=== PATIENT | female | born 1950 | race Caucasian/White ===

== ENCOUNTER 2017-04-04 18:05 | Emergency (ER) | payer MEDICARE ==
[2017-04-04] MEDS ORDERED: NITROGLYCERIN OINT 1 INCH/GM PACKET TOPICAL STA (18:26)
[2017-04-04] MEDS ORDERED: ASPIRIN 81 MG CHEW PO STA (18:26)
[2017-04-04] MEDS ORDERED: KETOROLAC 30 MG/ML 1 ML VIAL IVP STA (18:26)
[2017-04-04] MEDS ORDERED: LABETALOL 5 MG/ML VIAL MDV IVP STA (18:31)
--- NOTE | 2017-04-04 18:31 | ED ---
Chest Pain HPI - General Chief Complaint: Chest Pain Stated Complaint: chest pain Time Seen by Provider: 04/04/17 18:19 Source: patient Mode of arrival: wheelchair Limitations: no limitations - History of Present Illness Initial Comments: This 66-year-old white female presents with a complaint of some midsternal chest pain which seems to radiate into her jaw, neck, and right shoulder/arm. It started approximately 30 minutes prior to arrival. It is not associated with any shortness of breath, diaphoresis, or palpitations. She denies any known previous cardiac history. She has a history of a remote stress test but has never had a heart catheterization. She denies any change in her fibromyalgia associated leg pain. She denies any leg swelling, history of DVT or PE. She was at rest when this occurred. She denies any other complaints or modifying factors. She states that she had this one time previously and it was due to costochondritis. - Related Data Home Medications Medication Instructions Recorded Confirmed DULoxetine HCL [Cymbalta] 60 mg PO DAILY 06/15/14 04/04/17 Areds2 (Eye Vitamin) 1 tab PO BID 12/23/14 04/04/17 Cholecalciferol [Vitamin D3] 2,000 unit PO HS 12/23/14 04/04/17 Glucosam/Bryant-Msm1/C/Enrique/Bosw 1 tab PO BID 12/23/14 04/04/17 [Glucosamine-Chondroitin Tablet] Cinnamon Bark [Cinnamon] 1,000 mg PO BID 04/04/17 04/04/17 Fluticasone Nasal Grandy [Flonase 1 spray EA NOSTRIL BID 04/04/17 04/04/17 Nasal Grandy] L.acidoph,Paracasei, B.lactis 1 cap PO DAILY 04/04/17 04/04/17 [Probiotic] Magnesium 400 mg PO BID 04/04/17 04/04/17 Mupirocin Calcium 2% Cream 1 applic TOPICAL TID 04/04/17 04/04/17 [Bactroban 2% Cream] Saline Eye Drops 1 drop BOTH EYES DAILY 04/04/17 04/04/17 Turmeric Root Extract [Turmeric] 500 mg PO BID 04/04/17 04/04/17 Ubidecarenone [Co Q-10] 200 mg PO DAILY 04/04/17 04/04/17 Vitamin B Complex 1 cap PO DAILY 04/04/17 04/04/17 Zolpidem Tartrate [Ambien] 5 mg PO Q48H 04/04/17 04/04/17 amLODIPine BESYLATE [Norvasc] 5 mg PO DAILY 04/04/17 04/04/17 Allergies Allergy/AdvReac Type Severity Reaction Status Date / Time codeine Allergy Nausea & Verified 04/04/17 19:27 Vomiting,altered thoughts-paranoia erythromycin base AdvReac Abdominal Verified 04/04/17 19:27 [Erythromycin Base] Pain hydromorphone HCl AdvReac Nausea & Verified 04/04/17 19:27 [From Dilaudid] Vomiting Penicillins AdvReac Rash/Hives Verified 04/04/17 19:27 Review of Systems ROS Statement: Those systems with pertinent positive or pertinent negative responses have been documented in the HPI. ROS Other: All systems not noted in ROS Statement are negative. Past Medical History Past Medical History: Eye Disorder, Fibromyalgia, Hyperlipidemia, Hypertension, Musculoskeletal Disorder, Osteoarthritis (OA), Skin Disorder Additional Past Medical History / Comment(s): Recent bout of bronchits and sinus infection-resolved now. Currently has hemorrhoids. PLANTAR FASCITIS BINH. FEET. MACULAR DEG. & STARTING CATARACTS History of Any Multi-Drug Resistant Organisms: None Reported Past Surgical History: Adenoidectomy, Appendectomy, Hysterectomy, Orthopedic Surgery, Tonsillectomy Additional Past Surgical History / Comment(s): RT BARTHOLIN CYST 1972,. TENDON REPAIR LT THUMB,. HEMORRHOIDECTOMY X 2,. SALPINGO OOPHORECTOMY,. COLONOSCOPY WITH REMOVAL 2 POLYPS Past Anesthesia/Blood Transfusion Reactions: Previous Problems w/ Anesthesia Additional Past Anesthesia/Blood Transfusion Reaction / Comment(s): HARD TO WAKE UP Smoking Status: Former smoker - Past Family History Father Family Medical History: Cancer General Exam - General Exam Comments Initial Comments: GENERAL: The patient is well nourished and well hydrated. VITAL SIGNS: Heart rate, blood pressure, respiratory rate reviewed as recorded in nurse's notes. EYES: Pupils are round and reactive. Extraocular movements are intact. No conjunctival / lid redness or swelling. ENT: No external evidence of injury, swelling, or ecchymosis. Airway is patent. Throat is clear. NECK: Nontender. No swelling or evidence of injury. No subcutaneous emphysema. Trachea is midline. No thyroid mass. HEART: Regular rate and rhythm. Good peripheral pulses. LUNGS/CHEST: Breath sounds clear and equal bilaterally. No rales, rhonchi, or wheezes. No ecchymosis, subcutaneous emphysema. There is mild tenderness upon palpation of the chest. ABDOMEN: Abdomen soft without tenderness. No palpable masses or organomegaly. No peritoneal signs. No abdominal wall swelling or ecchymosis. EXTREMITIES: No extremity tenderness. Normal muscle tone and function. No thoracolumbar tenderness. NEUROLOGIC: Sensation is grossly intact. Cranial nerve exam reveals face is symmetrical, tongue is midline, speech is clear. SKIN: No abrasions or ecchymosis is noted. No induration or masses noted. PSYCHIATRIC: Alert and oriented. Appropriate behavior and judgment. Limitations: no limitations Course Vital Signs 04/04/17 04/04/17 18:10 19:19 Temperature 97.1 F L Pulse Rate 111 H 76 Respiratory 20 17 Rate Blood Pressure 221/108 112/60 O2 Sat by Pulse 95 96 Oximetry Chest Pain [facility] The patient was seen and examined. All diagnostics were reviewed. The EKG was done and shows sinus tachycardia at a rate of 102. Occasional PVC is noted. There is some nonspecific T-wave abnormalities noted in V5 and V6 which likely are artifactual. The RI interval is 160, QRS duration is 72, and QTC intervals 443. She receives some aspirin, Nitropaste, and Toradol. The laboratory did not show any acute abnormalities. The chest x-ray showed some possible pulmonary fibrosis. She is feeling remarkably improved on recheck. It is felt as though she should be admitted to the hospital for the possibility of acute coronary syndrome. In addition her blood pressure was significantly elevated and she did receive some labetalol for this did come down nicely. Is felt as though she would benefit from further monitoring of her blood pressures well. She refuses to stay in the hospital. The risks benefits were discussed and ultimately detail and she signs out AGAINST MEDICAL ADVICE. 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 She will follow up with her doctor tomorrow to schedule a stress test. Return parameters are discussed. Disposition Clinical Impression: Chest pain, Hypertensive crisis, Fibromyalgia, Left against medical advice Disposition: Left Against Medical Advice Condition: Fair Instructions: Chest Pain (ED), Hypertensive Crisis (ED), Against Medical Advice (ED) Referrals: Vianney Benjamin DO [Primary Care Provider] - 1-2 days Time of Disposition: 20:44
[2017-04-04 18:45] LABS: Basophils # (A) 0.1 k/uL (0-0.2); Basophils % (A) 1 %; CH 28.4; CHCM 33.6; Eosinophils # (A) 0.4 k/uL (0-0.7); Eosinophils % (A) 4 %; HCT 43.4 % (34.0-46.0); HDW 2.52; HGB 14.8 gm/dL (11.4-16.0); Luc # (Auto) 0.23; Luc % (Auto) 2; Lymphocytes # (A) 3.3 k/uL (1.0-4.8); Lymphocytes % (A) 29 %; MCH 28.9 pg (25.0-35.0); MCHC 34.1 g/dL (31.0-37.0); MCV 84.8 fL (80.0-100.0); Mean Platelet Volume 6.9; Monocytes # (A) 0.8 k/uL (0-1.0); Monocytes % (A) 7 %; Neutrophils # (A) 6.4 k/uL (1.3-7.7); Neutrophils % (A) 57 %; RBC 5.12 m/uL (3.80-5.40); RDW 13.6 % (11.5-15.5); WBC 11.3 k/uL (3.8-10.6); WBC (Perox) 11.43
--- NOTE | 2017-04-04 18:49 | XR ---
EXAMINATION TYPE: XR chest 2V DATE OF EXAM: 04/04/2017 COMPARISON: NONE HISTORY: Chest pain TECHNIQUE: Frontal and lateral views of the chest are obtained. FINDINGS: There is coarsening of interstitial markings. Heart size is normal. There are chest leads. There is no pleural effusion. IMPRESSION: Interstitial pulmonary infiltrates probably due to fibrosis. Normal heart. No gross hear t failure.
[2017-04-04 18:55] LABS: INR 1.1 (<1.1); Partial Thromboplastin Time 24.4 sec (22.0-30.0); Prothrombin Time 10.8 sec (9.0-12.0)
[2017-04-04 19:00] LABS: ALT 33 U/L (9-52); AST 20 U/L (14-36); Alkaline Phosphatase 101 U/L (38-126); Anion Gap 13 mmol/L; Blood Urea Nitrogen 16 mg/dL (7-17); Carbon Dioxide 26 mmol/L (22-30); Chloride 106 mmol/L (98-107); Creatine Kinase 41 U/L (30-135); Glucose 126 mg/dL (74-99); Non-African American GFR(MDRD) >60 (>60 ml/min/1.73 sqM); Potassium 3.9 mmol/L (3.5-5.1); Sodium 145 mmol/L (137-145); Total Bilirubin 0.3 mg/dL (0.2-1.3); Total Protein 7.2 g/dL (6.3-8.2)
[2017-04-04 19:11] LABS: Creatine Kinase MB 0.4 ng/mL (0.0-2.4); Troponin I <0.012 ng/mL (0.000-0.034)
[2017-04-04 20:43] VITALS: BP 130/64; PULSE 87; RESP 16; TEMP 98.7
== END 2017-04-04 20:58 | disposition left against medical advice (07) ==
LOC: EC 18:05
DX: R07.9 Chest pain, unspecified (principal); I16.9 Hypertensive crisis, unspecified; M79.7 Fibromyalgia; Z53.21 Procedure and treatment not carried out due to patient leaving prior to being seen by health care provider; Z79.899 Other long term (current) drug therapy; Z79.51 Long term (current) use of inhaled steroids; Z88.5 Allergy status to narcotic agent; Z88.0 Allergy status to penicillin; Z87.891 Personal history of nicotine dependence
CPT/HCPCS: 36415; 93005; 80053; 82550; 82553; 83735; 84484; 85025; 85610; 85730; 71020; 99285; 96374; 96375; J1885

== ENCOUNTER 2017-04-09 10:33 | Day surgery (SDC) | payer BC, MEDICARE ==
[2017-04-08 08:47] VITALS: BMI 37.2
[2017-04-09 11:34] VITALS: TEMP 97
[2017-04-09] MEDS: LACTATED RINGERS 1,000 ML IV SCH ×2 (11:46→11:47)
[2017-04-09] MEDS ORDERED: MIDAZOLAM 2 MG/2 ML VIAL ONE (11:48)
[2017-04-09] MEDS ORDERED: LIDOCAINE 1% INJ 10MG/ML (20 ML MDV) ONE (11:48)
[2017-04-09] MEDS ORDERED: PROPOFOL 10 MG/ML 20 ML VIAL IV ONE (11:48)
[2017-04-09 11:55] LABS: Glucose,Whole Blood 148 mg/dL (75-99)
--- NOTE | 2017-04-09 11:57 | P.GSHP ---
History of Present Illness H&P Date: 04/09/17 Chief Complaint: Screening colonoscopy This 66-year-old female who presents today for screening colonoscopy. The patient had issues with some rectal bleeding from hemorrhoids. Patient's last colonoscopy was 14 years ago. She states she had a polyp at that time. Past Medical History Past Medical History: Eye Disorder, Fibromyalgia, Hyperlipidemia, Hypertension, Musculoskeletal Disorder, Osteoarthritis (OA), Skin Disorder Additional Past Medical History / Comment(s): FLAIR UP OF FIBROMYALGIA WAS SEEN IN ER 04/04/17. Currently has hemorrhoids. PLANTAR FASCITIS BINH. FEET. MACULAR DEG. & STARTING CATARACTS History of Any Multi-Drug Resistant Organisms: None Reported Past Surgical History: Adenoidectomy, Appendectomy, Hysterectomy, Orthopedic Surgery, Tonsillectomy Additional Past Surgical History / Comment(s): RT BARTHOLIN CYST 1972,. TENDON REPAIR LT THUMB,. HEMORRHOIDECTOMY X 2,. SALPINGO OOPHORECTOMY,. COLONOSCOPY WITH REMOVAL 2 POLYPS Past Anesthesia/Blood Transfusion Reactions: Previous Problems w/ Anesthesia Additional Past Anesthesia/Blood Transfusion Reaction / Comment(s): HARD TO WAKE UP Smoking Status: Former smoker - Past Family History Father Family Medical History: Cancer Medications and Allergies Home Medications Medication Instructions Recorded Confirmed Type DULoxetine HCL [Cymbalta] 60 mg PO DAILY 06/15/14 04/09/17 History Areds2 (Eye Vitamin) 1 tab PO BID 12/23/14 04/09/17 History Cholecalciferol [Vitamin D3] 2,000 unit PO HS 12/23/14 04/09/17 History Glucosam/Bryant-Msm1/C/Enrique/Bosw 1 tab PO BID 12/23/14 04/09/17 History [Glucosamine-Chondroitin Tablet] Cinnamon Bark [Cinnamon] 1,000 mg PO BID 04/04/17 04/09/17 History Fluticasone Nasal Redmon [Flonase 1 spray EA NOSTRIL BID 04/04/17 04/09/17 History Nasal Redmon] L.acidoph,Paracasei, B.lactis 1 cap PO DAILY 04/04/17 04/09/17 History [Probiotic] Magnesium 400 mg PO BID 04/04/17 04/09/17 History Mupirocin Calcium 2% Cream 1 applic TOPICAL TID 04/04/17 04/09/17 History [Bactroban 2% Cream] Saline Eye Drops 1 drop BOTH EYES DAILY 04/04/17 04/09/17 History Turmeric Root Extract [Turmeric] 500 mg PO BID 04/04/17 04/09/17 History Ubidecarenone [Co Q-10] 200 mg PO DAILY 04/04/17 04/09/17 History Vitamin B Complex 1 cap PO DAILY 04/04/17 04/09/17 History Zolpidem Tartrate [Ambien] 5 mg PO Q48H 04/04/17 04/09/17 History amLODIPine BESYLATE [Norvasc] 5 mg PO DAILY 04/04/17 04/09/17 History Allergies Allergy/AdvReac Type Severity Reaction Status Date / Time codeine Allergy Nausea & Verified 04/09/17 11:34 Vomiting,altered thoughts-paranoia erythromycin base AdvReac Abdominal Verified 04/09/17 11:34 [Erythromycin Base] Pain hydromorphone HCl AdvReac Nausea & Verified 04/09/17 11:34 [From Dilaudid] Vomiting Penicillins AdvReac Rash/Hives Verified 04/09/17 11:34 Surgical - Exam Vital Signs Temp Pulse Resp BP Pulse Ox 97.0 F L 100 18 171/98 95 04/09/17 11:32 04/09/17 11:32 04/09/17 11:32 04/09/17 11:32 04/09/17 11:32 - General well developed, no distress - Eyes PERRL - ENT normal pinna - Neck no masses - Respiratory normal expansion - Cardiovascular Rhythm: regular - Abdomen Abdomen: soft, non tender Results - Labs Abnormal Lab Results - Last 24 Hours (Table) 04/09/17 Range/Units 11:43 POC Glucose (mg/dL) 148 H (75-99) mg/dL Assessment and Plan Plan: History of colon polyp. We'll perform colonoscopy.
--- NOTE | 2017-04-09 12:12 | P.OP ---
Date of Procedure: 04/09/17 Preoperative Diagnosis: Screening colonoscopy Colon polyp Postoperative Diagnosis: Internal and external hemorrhoids Rectal polyp Procedure(s) Performed: Colonoscopy Implants: Anesthesia: MAC Surgeon: Kirby Tracey Pathology: other (Rectal polyp) Condition: stable Disposition: PACU Indications for Procedure: Operative Findings: Description of Procedure: The patient's placed on the endoscopy table in the lateral position. She received IV sedation. Digital rectal exam was performed which revealed internal and external hemorrhoids. The flexible colonoscope was then placed patient anus and passed throughout the entire colon. The ileocecal valve visualized. Cecum, ascending and transverse colon appeared normal. In the descending and sigmoid colon was a few scattered diverticula. Scope was then brought back the rectum another polyp was visualized. This was removed the forcep. Scope was withdrawn for patient in the internal Mr. noted.
[2017-04-09 12:18] VITALS: RESP 16
[2017-04-09 12:33] VITALS: BP 113/72; PULSE 73
== END 2017-04-09 12:49 | disposition home or self-care (01) ==
LOC: ORWHC2ENDO 10:33
PROVIDERS: ATTEND Surgery
DX: Z12.11 Encounter for screening for malignant neoplasm of colon (principal); K62.1 Rectal polyp; K64.4 Residual hemorrhoidal skin tags; K64.8 Other hemorrhoids; Z86.010 Personal history of colon polyps; E78.5 Hyperlipidemia, unspecified; I10 Essential (primary) hypertension; M79.7 Fibromyalgia; M19.90 Unspecified osteoarthritis, unspecified site; Z87.891 Personal history of nicotine dependence; Z79.51 Long term (current) use of inhaled steroids; Z79.899 Other long term (current) drug therapy; Z88.1 Allergy status to other antibiotic agents; Z88.5 Allergy status to narcotic agent; Z88.0 Allergy status to penicillin
CPT/HCPCS: 88305; 45380; J2250; J2001; J2704

== ENCOUNTER → 2017-05-08 | Outpatient (CLI) | payer MEDICARE ==
--- NOTE | 2017-05-08 14:51 | EST ---
DATE OF SERVICE: 05/08/2017 TYPE OF REPORT: CARDIOLITE DELICIA STRESS TEST INDICATION: Chest pain. BASELINE HEART RATE: 124 BASELINE BLOOD PRESSURE: 145/99 MAXIMUM HEART RATE: 140 MAXIMUM BLOOD PRESSURE: 217/86 85% MPHR: 132 100% MPHR: 153 METS: 3.6 MAXIMUM STAGE REACHED: I TOTAL EXERCISE TIME: 2:15 Baseline EKG revealed normal sinus rhythm without significant ST-T changes. Patient walked on standard Delicia protocol for 2 minutes, 20 seconds, developed fatigue, shortness of breath and therefore stress test was stopped. Patient has an extremely limited exercise capacity. EKG did not reveal any ST-segment changes, maximum heart rate was 140 beats per minute. By EKG criteria, this is a negative stress test with extremely limited exercise capacity. The nuclear scan results which are more pertinent will be reported by the radiologist. ANA
--- NOTE | 2017-05-08 15:36 | NM ---
EXAMINATION TYPE: NM stress cardiolite complete DATE OF EXAM: 05/08/2017 COMPARISON: NONE HISTORY: Chest pain TECHNIQUE: After the intravenous administration of 10.19 mCi Tc 99m Sestamibi - Rest images obtained 45 minutes post injection. The patient exercised using a DELICIA protocol and 1 minute prior to peak exercise was injected with 25.3 mCi Tc 99m Sestamibi - Stress images obtained 10 minutes post inject ion. FINDINGS: Targeted heart rate was achieved during performance of the study. Review of stress and rest SPECT nata ges demonstrates decreased radiopharmaceutical uptake along the anterolateral left ventricle towards the apex on stress as compared to rest images. Gated analysis shows normal wall motion with an estim ated left ventricular ejection fraction of 59 %. 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 A Yellow message has been communicated to Vianney Benjamin DO via the [employer] system on 05/08/2017 3:33 PM, Message ID [id number].
== END | disposition home or self-care (01) ==
LOC: RADNMMAIN 09:07
PROVIDERS: ATTEND Family Medicine
DX: R07.9 Chest pain, unspecified (principal)
CPT/HCPCS: 93017; 78452; A9500

== ENCOUNTER → 2017-05-31 | Outpatient (CLI) | payer MEDICARE ==
[2017-05-31 16:54] LABS: CH 28.5; CHCM 32.6; HCT 46.8 % (34.0-46.0); HDW 2.43; HGB 15.5 gm/dL (11.4-16.0); MCHC 33.1 g/dL (31.0-37.0); MCV 87.7 fL (80.0-100.0); Mean Platelet Volume 6.5; RBC 5.34 m/uL (3.80-5.40); RDW 13.6 % (11.5-15.5); WBC 13.1 k/uL (3.8-10.6)
[2017-05-31 17:05] LABS: Anion Gap 11 mmol/L; Blood Urea Nitrogen 16 mg/dL (7-17); Carbon Dioxide 30 mmol/L (22-30); Chloride 105 mmol/L (98-107); Non-African American GFR(MDRD) >60 (>60 ml/min/1.73 sqM); Potassium 4.4 mmol/L (3.5-5.1); Sodium 146 mmol/L (137-145)
== END | disposition home or self-care (01) ==
LOC: LABPAT 16:35
PROVIDERS: ATTEND Internal Medicine Interventional Cardiology
DX: Z01.812 Encounter for preprocedural laboratory examination (principal); R94.30 Abnormal result of cardiovascular function study, unspecified
CPT/HCPCS: 80051; 82565; 84520; 85027

== ENCOUNTER 2017-06-05 09:26 | Day surgery (SDC) | payer MEDICARE ==
[2017-05-28 15:31] VITALS: BMI 38.4
[~2017-06-05 09:26] MED LIST: ALPRAZolam 0.25 MG TAB PO PRN; ASPIRIN 325 MG TAB PO ONE; SODIUM CHLORIDE 0.9% 1,000 ML in EMPTY BAG 1 BAG IV ONE
[2017-06-05 10:36] VITALS: PULSE 84; TEMP 98.2
[2017-06-05] MEDS ORDERED: LIDOCAINE 2% INJ 20 MG/ML (20 ML MDV) ONE (11:11)
[2017-06-05] MEDS ORDERED: MIDAZOLAM 2 MG/2 ML VIAL ONE (11:11)
[2017-06-05] MEDS ORDERED: HEPARIN SODIUM 1,000 UN/ML (10ML VL) ONE (11:11)
[2017-06-05] MEDS ORDERED: diphenhydrAMINE 50 MG/ML 1 ML VIAL ONE (11:12)
[2017-06-05] MEDS ORDERED: VERAPAMIL 2.5 MG/ML 2 ML AMP ONE (11:12)
[2017-06-05] MEDS ORDERED: MIDAZOLAM 2 MG/2 ML VIAL IV ONE (11:29)
[2017-06-05] MEDS ORDERED: diphenhydrAMINE 50 MG/ML 1 ML VIAL IVP ONE (11:29)
[2017-06-05] MEDS ORDERED: SODIUM CHLORIDE 0.9% 1,000 ML IV ONE (11:33)
[2017-06-05] MEDS ORDERED: LIDOCAINE 2% INJ 20 MG/ML SQ ONE (11:47)
[2017-06-05] MEDS ORDERED: VERAPAMIL SYRINGE (5 MG/10 ML) INTRAARTER ONE (11:49)
[2017-06-05] MEDS ORDERED: HEPARIN SODIUM 1,000 UN/ML (10ML VL) IV ONE (11:52)
[2017-06-05] MEDS ORDERED: RX INFO: IV CONTRAST WAS GIVEN 1 EACH MISC MISCELLANE PRN (13:10)
[2017-06-05] MEDS ORDERED: SODIUM CHLORIDE 0.9% 1,000 ML IV SCH (13:15)
[2017-06-05 14:45] VITALS: RESP 20
--- NOTE | 2017-06-05 15:47 | CC ---
CARDIAC CATHETERIZATION REPORT DATE OF SERVICE: 06/05/2017 PROCEDURE: Left heart catheterization, coronary angiography. Performed by Dr. Jj Hanley. CLINICAL INFORMATION: Mrs. Johnson is a 66-year-old lady with a history of hypertension, family history of CAD with a positive stress test. Symptoms suggestive of angina. Will advice cardiac catheterization after due discussion regarding risks, benefits, and options. Patient understood all details and wished to proceed with the procedure. DESCRIPTION OF PROCEDURE NOTE: Under local anesthesia and strict aseptic precautions, a 6-Setswana introducer was placed in the right radial artery. Using an Ultimate 1 catheter, I performed selective coronary angiography and a pigtail catheter was used to check LV pressure but LV-gram was not performed. The sheath was taken out and I used a new HuntForce device, a tracelet to secure hemostasis. His saturation of the fingers of the right hand was 93%. There was no significant CAD, filling pressures were acceptable. Patient tolerated procedure well. Moderate conscious sedation was used for a total duration of 30 minutes. She received Benadryl and Vercet. CARDIAC CATHETERIZATION FINDINGS: The left ventricular end-diastolic pressure was 16 mmHg without any gradient across the aortic valve. Right Coronary Artery. Dominant disease-free vessel which bifurcates distally into PDA and PLV, both of which supply a sizable amount of myocardium. There is no significant disease in the dominant RCA. LEFT MAIN CORONARY ARTERY: A short, patent, disease-free vessel that bifurcates into LAD and circumflex. There is no significant disease in the left main coronary artery. LEFT ANTERIOR DESCENDING CORONARY ARTERY: A good caliber vessel. Extends along the antral wall, gives off septal and diagonal branches. Runs all the way to the apex, that curves over to the lateral aspect and supplies a sizable amount of myocardium. The LAD is free of significant disease. Has minor irregularities. Gives off septal and diagonal branches that are also free of significant disease. LEFT POSTERIOR CIRCUMFLEX CORONARY ARTERY: Nondominant vessel. It gives off 2 small obtuse marginals, minor irregularities. No significant disease. LEFT VENTRICULOGRAM: This was not performed. FINAL IMPRESSION: This patient has a right dominant system, Normal filling pressures, no significant coronary artery disease. RECOMMENDATION: Findings were discussed with the patient. There is no family available. I am recommending medical therapy with risk factor modification and she will be discharged later on today if she remains stable. MMODL / IJN: [id number] /
--- NOTE | 2017-06-05 15:47 | LTR ---
Date: Date of Service: 06/05/[address] Benjamin; Thank you for the opportunity to participate in the care of Mrs Rosa Johnson. I am pleased to report to you that she does not have any obstructive CAD. I would; however, recommend current medications with optimal BP control including Lipitor for her hyperlipidemia and continued risk factor modification. I expect that she will be discharged later on today and I will see her in the office on Saturday. Thank you for the referral and please call for questions. With kindest regards. Sincerely yours, Grace Greenfield. DAGMAR / PADMA: [phone] /
[2017-06-05 16:11] VITALS: BP 127/62
== END 2017-06-05 18:09 | disposition home or self-care (01) ==
LOC: CATHCVL 09:26
PROVIDERS: ATTEND Internal Medicine Interventional Cardiology
DX: R94.39 Abnormal result of other cardiovascular function study (principal); Z82.49 Family history of ischemic heart disease and other diseases of the circulatory system; I10 Essential (primary) hypertension; Z87.891 Personal history of nicotine dependence; E78.00 Pure hypercholesterolemia, unspecified; M79.7 Fibromyalgia; Z79.82 Long term (current) use of aspirin; Z79.899 Other long term (current) drug therapy; Z88.1 Allergy status to other antibiotic agents; Z88.5 Allergy status to narcotic agent; Z88.0 Allergy status to penicillin
CPT/HCPCS: 93458; 99152; 99153; C1894 ×2; J2001; J2250; J1200; J1644

== ENCOUNTER 2017-07-10 07:09 | Day surgery (SDC) | payer MEDICARE ==
[2017-07-08 11:16] VITALS: BMI 37.7
[~2017-07-10 07:09] MED LIST changes: -ALPRAZolam 0.25 MG TAB PO PRN; -ASPIRIN 325 MG TAB PO ONE; +LACTATED RINGERS 1,000 ML IV SCH; +LIDOCAINE 1% 20 ML VIAL (10MG/ML) FOR IV START INTRADERMA PRN; +MOXIFLOXACIN HCL 0.5% DROPS 3 ML BTL OP ONE; -SODIUM CHLORIDE 0.9% 1,000 ML in EMPTY BAG 1 BAG IV ONE; +TETRACAINE 0.5% OPHTH (PF) DROPS 4 ML BTL OP ONE; +TIMOLOL 0.5% OPHTH SOLN (PF) 0.2 ML DROPERETTE OP ONE
[2017-07-10] MEDS: PHENYLEPHRINE 2.5% OPHTH DRP 2ML OP NR ×3 (07:19→07:30)
[2017-07-10] MEDS: CYCLOPENTOLATE 1% OPHTH SOLN 2 ML BTL OP ONE ×3 (07:22→07:33)
[2017-07-10 07:23] VITALS: TEMP 98.7
[2017-07-10] MEDS ORDERED: LIDOCAINE 1% 20 ML VIAL (10MG/ML) FOR IV START INTRADERMA ONE (07:23)
[2017-07-10] MEDS ORDERED: fentaNYL (PF) 50 MCG/ML 2 ML AMP ONE (08:07)
[2017-07-10] MEDS ORDERED: MIDAZOLAM 2 MG/2 ML VIAL ONE (08:07)
[2017-07-10] MEDS ORDERED: LIDOCAINE 1% (PF) 10MG/ML VIAL SQ ONE (08:15)
[2017-07-10] MEDS ORDERED: BALANCED SALT IRRIG SOLN COMB2 15 ML IRRIG.SOLN INTRAOCULA ONE (08:15)
[2017-07-10] MEDS ORDERED: HYALURONATE SODIUM INTRAOCULAR 1 EACH SYRINGE (12MG/ML) INTRAOCULA ONE ×2 (08:15)
[2017-07-10] MEDS ORDERED: EPINEPHrine (PF) 0.3 ML in BALANCED SALT IRRIG SOLN COMB2 500 ML IRRIGATION ONE (08:17)
--- NOTE | 2017-07-10 08:31 | P.OP ---
Date of Procedure: 07/10/17 Preoperative Diagnosis: NS & CS Postoperative Diagnosis: same Procedure(s) Performed: PIOL, OS Implants: PCB00 +22.00 Anesthesia: MAC Surgeon: Sven Marshall Estimated Blood Loss (ml): 0 Pathology: none sent Condition: stable Disposition: same day Indications for Procedure: blurry vision Operative Findings: No complications
[2017-07-10 08:46] VITALS: BP 111/73; PULSE 78; RESP 18
--- NOTE | 2017-07-10 21:23 | OP ---
OPERATIVE REPORT DATE OF SURGERY: 07/10/2017 PREOPERATIVE DIAGNOSES:: 1. Nuclear sclerosis. 2. Cortical sclerosis. POSTOPERATIVE DIAGNOSIS:: Same. OPERATION:: Phacoemulsification of cataract and intraocular lens implant of the left eye. ESTIMATED BLOOD LOSS:: Zero. SPECIMEN TAKEN:: None. NARRATIVE:: After obtaining the appropriate consent, the patient was brought to the Operating Room where the patient was placed under cardiac monitoring and prepped and draped in the usual sterile manner. At the 5 o'clock position, a 15 degree super sharp blade was used to create a paracentesis followed by instillation of 1% Xylocaine MPF 50:50 mix with BSS into the anterior chamber. This was followed by Amvisc to stabilize the anterior chamber. At the 3 o'clock position, a self-sealing corneal flap incision was created using 2.8 mm hermelindo keratome. A cystatome was used to initiate a continuous tear capsulorrhexis which was completed with the Utrata forceps. A Binkhorst cannula was used to hydrodissect the lens nucleus followed by hydrodelineation. Phacoemulsification of the lens was performed utilizing phacochop in 1 minute 15 seconds at 13% power. The remaining cortical material was removed using the irrigation aspiration mode followed by additional 1% Xylocaine MPF into the anterior chamber followed by viscoelastic to stabilize the capsular bag. An YNES PCB00 22.0-diopter posterior chamber lens was placed into the capsular bag without difficulty. The remaining viscoelastic material was removed from the anterior chamber with the irrigation/aspiration. Balanced salt solution was used to normalize the intraocular pressure. The incision was checked for watertight integrity. The patient then received two drops of 0.5% timolol followed by two drops Vigamox, was lightly patched and shielded in the usual manner. There were no complications from the procedure. The patient tolerated the procedure well and was returned to recovery in good condition. MMODL / IJN: [id number] /
== END 2017-07-10 09:07 | disposition home or self-care (01) ==
LOC: OR 07:09
PROVIDERS: ATTEND Ophthalmology
DX: H25.12 Age-related nuclear cataract, left eye (principal); H25.012 Cortical age-related cataract, left eye; H35.3131 Nonexudative age-related macular degeneration, bilateral, early dry stage; H04.123 Dry eye syndrome of bilateral lacrimal glands; H52.223 Regular astigmatism, bilateral; H52.03 Hypermetropia, bilateral; H52.4 Presbyopia; H01.139 Eczematous dermatitis of unspecified eye, unspecified eyelid; H01.009 Unspecified blepharitis unspecified eye, unspecified eyelid; H00.023 Hordeolum internum right eye, unspecified eyelid; H00.026 Hordeolum internum left eye, unspecified eyelid; I11.9 Hypertensive heart disease without heart failure; Z87.891 Personal history of nicotine dependence; M19.90 Unspecified osteoarthritis, unspecified site; M79.7 Fibromyalgia; J44.9 Chronic obstructive pulmonary disease, unspecified; E78.5 Hyperlipidemia, unspecified; R41.3 Other amnesia; H93.299 Other abnormal auditory perceptions, unspecified ear; Z79.82 Long term (current) use of aspirin; Z79.51 Long term (current) use of inhaled steroids; Z79.899 Other long term (current) drug therapy; Z88.1 Allergy status to other antibiotic agents; Z88.5 Allergy status to narcotic agent; Z88.0 Allergy status to penicillin
CPT/HCPCS: 66984; C1780; J2250; J0171; J3010; J2001

== ENCOUNTER 2017-08-28 10:06 | Day surgery (SDC) | payer MEDICARE ==
[2017-08-27 10:23] VITALS: BMI 37.0
[2017-08-28] MEDS: CYCLOPENTOLATE 1% OPHTH SOLN 2 ML BTL OP ONE ×3 (11:28→11:34)
[2017-08-28] MEDS: PHENYLEPHRINE 2.5% OPHTH DRP 2ML OP NR ×3 (11:37→11:43)
[2017-08-28 11:38] VITALS: RESP 16; TEMP 97.2
[2017-08-28] MEDS ORDERED: fentaNYL (PF) 50 MCG/ML 2 ML AMP ONE (12:27)
[2017-08-28] MEDS ORDERED: MIDAZOLAM 2 MG/2 ML VIAL ONE (12:27)
[2017-08-28] MEDS ORDERED: EPINEPHrine (PF) 0.3 ML in BALANCED SALT IRRIG SOLN COMB2 500 ML IRRIGATION ONE (12:27)
[2017-08-28] MEDS ORDERED: HYALURONATE SODIUM INTRAOCULAR 1 EACH SYRINGE (12MG/ML) INTRAOCULA ONE (12:30)
[2017-08-28] MEDS ORDERED: LIDOCAINE 1% (PF) 10MG/ML VIAL INTRAARTIC ONE (12:30)
[2017-08-28] MEDS ORDERED: BALANCED SALT IRRIG SOLN COMB2 15 ML IRRIG.SOLN IRRIGATION ONE (12:34)
--- NOTE | 2017-08-28 12:52 | P.OP ---
Date of Procedure: 08/28/17 Preoperative Diagnosis: NS & CS Postoperative Diagnosis: same Procedure(s) Performed: PIOL, OD Implants: PCB00 21.50 Anesthesia: MAC Surgeon: Sven Marshall Estimated Blood Loss (ml): 0 Pathology: none sent Condition: stable Disposition: same day Indications for Procedure: blurry vision Operative Findings: No complications
[2017-08-28 13:12] VITALS: BP 138/80; PULSE 81
--- NOTE | 2017-08-28 13:51 | OP ---
OPERATIVE REPORT DATE OF SERVICE: 08/28/2017 PROCEDURES: Phacoemulsification of cataract and intraocular lens implant of the right eye. PREOPERATIVE DIAGNOSIS:: Nuclear sclerosis, cortical sclerosis. POSTOPERATIVE DIAGNOSIS:: Nuclear sclerosis, cortical sclerosis. OPERATION:: Clear cornea phacoemulsification of cataract right eye eye. ESTIMATED BLOOD LOSS:: Zero. SPECIMEN TAKEN:: None. NARRATIVE:: After obtaining the appropriate consent, the patient was brought to the Operating Room where the patient was placed under cardiac monitoring and prepped and draped in the usual sterile manner. At the 5 o'clock position a 15 degree super sharp blade was used to create a paracentesis followed by instillation of 1% Xylocaine MPF 50:50 mix with BSS into the anterior chamber. This was followed by Amvisc to stabilize the anterior chamber. At the 9 o'clock position a self-sealing corneal flap incision was created using 2.8 mm hermelindo keratome. A cystatome was used to initiate a continuous tear capsulorrhexis which was completed with the Utrata forceps. A Binkhorst cannula was used to hydrodissect the lens nucleus followed by hydrodelineation. Phacoemulsification of the lens was performed utilizing phacochop in 11.88 seconds at 11% power. The remaining cortical material was removed using the irrigation aspiration mode followed by additional 1% Xylocaine MPF into the anterior chamber followed by viscoelastic to stabilize the capsular bag. An YNES PCB 0021.5 Diopters posterior chamber lens was placed into the capsular bag without difficulty. The remaining viscoelastic material was removed from the anterior chamber with the irrigation/aspiration. Balanced salt solution was used to normalize the intraocular pressure. The incision was checked for watertight integrity. The patient then received two drops of 0.5% timolol followed by two drops Vigamox, was lightly patched and shielded in the usual manner. There were no complications from the procedure. The patient tolerated the procedure well and was returned to recovery in good condition. MMODL / IJN: [id number] /
== END 2017-08-28 13:36 | disposition home or self-care (01) ==
LOC: OR 10:06
PROVIDERS: ATTEND Ophthalmology
DX: H25.11 Age-related nuclear cataract, right eye (principal); H35.3131 Nonexudative age-related macular degeneration, bilateral, early dry stage; H52.223 Regular astigmatism, bilateral; H04.123 Dry eye syndrome of bilateral lacrimal glands; H52.03 Hypermetropia, bilateral; H52.4 Presbyopia; H01.139 Eczematous dermatitis of unspecified eye, unspecified eyelid; H25.011 Cortical age-related cataract, right eye; H01.009 Unspecified blepharitis unspecified eye, unspecified eyelid; H00.023 Hordeolum internum right eye, unspecified eyelid; H00.026 Hordeolum internum left eye, unspecified eyelid; I10 Essential (primary) hypertension; E78.5 Hyperlipidemia, unspecified; J44.9 Chronic obstructive pulmonary disease, unspecified; M79.7 Fibromyalgia; H91.90 Unspecified hearing loss, unspecified ear; F03.90 Unspecified dementia, unspecified severity, without behavioral disturbance, psychotic disturbance, mood disturbance, and anxiety; Z96.1 Presence of intraocular lens; Z79.899 Other long term (current) drug therapy; Z87.891 Personal history of nicotine dependence; Z79.82 Long term (current) use of aspirin; Z79.51 Long term (current) use of inhaled steroids; Z88.0 Allergy status to penicillin; Z88.5 Allergy status to narcotic agent; Z88.1 Allergy status to other antibiotic agents
CPT/HCPCS: 66984; C1780; J2250; J0171; J3010; J2001

== ENCOUNTER → 2018-02-14 | Outpatient (CLI) | payer MEDICARE ==
[2018-02-17 15:55] LABS: Cow's Milk IgE Class CLASS 0; Egg White IgE <0.35 kU/L (<0.35); Peanut IgE <0.35 kU/L (<0.35); Potato IgE <0.35 kU/L (<0.35); Potato IgE Class CLASS 0; Soybean IgE <0.35 kU/L (<0.35)
== END | disposition home or self-care (01) ==
LOC: LABWHC1 14:08
PROVIDERS: ATTEND Otolaryngology
DX: J30.89 Other allergic rhinitis (principal)
CPT/HCPCS: 36415; 86003

== ENCOUNTER → 2018-08-15 | Outpatient (CLI) | payer MEDICARE ==
--- NOTE | 2018-08-16 18:08 | MR ---
EXAMINATION TYPE: MR cervical spine wo con DATE OF EXAM: 08/15/2018 COMPARISON: None HISTORY: Neck pain, Rt arm pain, Headaches TECHNIQUE: Multiplanar, multisequence images of the cervical spine were acquired. FINDINGS: The cervical vertebral bodies maintain normal vertebral body heights and alignment. There i s multilevel disc desiccation seen throughout the cervical spine. Bone marrow signal is within normal limits. Cervical spinal cord signal is unremarkable. C2-C3: There is a small central disc osteophyte complex without spinal canal stenosis or neural nick inal narrowing. C3-C4: Small central disc osteophyte complex is seen. No neural foraminal narrowing or spinal canal s tenosis. C4-C5: There is a small broad-based disc bulge and small central disc osteophyte complex with uncover tebral hypertrophy. No significant spinal canal stenosis or neural foraminal narrowing. C5-C6: There is uncovertebral hypertrophy and a small left paracentral disc herniation bulge resultin g in mild bilateral neural foraminal narrowing and minimal impression on the ventral subarachnoid spa ce without spinal canal stenosis. C6-C7: There is uncovertebral hypertrophy and facet arthropathy creating mild bilateral neural forami nal narrowing. Very small central disc herniation is seen without spinal canal stenosis. C7-T1: Disc desiccation without spinal canal stenosis or neural foraminal narrowing. IMPRESSION: Small disc herniations at C5-C6 and C6-C7 minimally narrowing the ventral subarachnoid space without significant spinal canal stenosis. Variable degree of neural foraminal narrowing is seen as described above from multilevel degenerative disc disease.
== END | disposition home or self-care (01) ==
LOC: RADMRIMAIN 18:50
PROVIDERS: ATTEND Orthopaedic Surgery
DX: M99.71 Connective tissue and disc stenosis of intervertebral foramina of cervical region (principal); M50.122 Cervical disc disorder at C5-C6 level with radiculopathy; M50.10 Cervical disc disorder with radiculopathy, unspecified cervical region; M47.22 Other spondylosis with radiculopathy, cervical region; M19.011 Primary osteoarthritis, right shoulder; M65.811 Other synovitis and tenosynovitis, right shoulder
CPT/HCPCS: 72141

== ENCOUNTER → 2018-10-09 | Outpatient (CLI) | payer MEDICARE ==
[2018-10-09 13:46] VITALS: BP 118/71; PULSE 114; RESP 18
--- NOTE | 2018-10-09 14:13 | P.PAINCN ---
History of Present Illness - Reason for Consult Consult date: 10/09/18 - History of Present Illness Rosa is a 68-year-old female who presents today as a new patient consult. She resents with continued and chronic neck pain. She reports pain in her neck with extension and flexion of the neck as well as lateral sidebending. She reports that her pain is chronic in nature and reports referred pain into her right shoulder mostly. She reports limited range of motion in her neck as well. She denies any numbness or tingling in her fingers or any weakness in her fingers. She feels that when she holds heavy objects in right hand or arm begins to twitch at times and feels that she cannot hold heavier objects anymore. She has seen orthopedic surgeon in June 2018 who felt that her pain is coming from her neck. He did get an x-ray of the shoulder with a negative MRI of the shoulder. She has recently been prescribed [place] last filled on 08/11/2018 for total of 21 tablets. She has not been on them for long periods time and had to [place] prescription filled in 2018. She also reports a history of fibromyalgia which she uses multiple [id number] medications as well as massage therapy. Review of Systems 12 point review of systems done is negative except as noted in the HPI Past Medical History Past Medical History: Asthma, Eye Disorder, Fibromyalgia, Hearing Disorder / Deafness, Hyperlipidemia, Hypertension, Memory Impairment, Musculoskeletal Disorder, Osteoarthritis (OA), Skin Disorder Additional Past Medical History / Comment(s): Hx of bronchits and sinus infection, hemorrhoids. PLANTAR FASCITIS BINH. FEET, eczema, hypoglycemia,. MACULAR DEG. & CATARACTS, History of Any Multi-Drug Resistant Organisms: None Reported Past Surgical History: Adenoidectomy, Appendectomy, Heart Catheterization, Hysterectomy, Tonsillectomy Additional Past Surgical History / Comment(s): RT BARTHOLIN CYST. TENDON REPAIR LT THUMB,. HEMORRHOIDECTOMY X 2,. SALPINGO OOPHORECTOMY,. COLONOSCOPY Past Anesthesia/Blood Transfusion Reactions: Previous Problems w/ Anesthesia Additional Past Anesthesia/Blood Transfusion Reaction / Comm: HARD TO WAKE UP. Had blood transfusion with no reactions. Smoking Status: Former smoker - Past Family History Father Family Medical History: Cancer, Osteoarthritis (OA) Additional Family Medical History / Comment(s): Lung cancer. Medications and Allergies Home Medications Medication Instructions Recorded Confirmed Type DULoxetine HCL [Cymbalta] 60 mg PO DAILY 06/15/14 08/27/17 History Cholecalciferol [Vitamin D3] 5,000 unit PO HS 12/23/14 08/27/17 History Glucosam/Bryant-Msm1/C/Enrique/Bosw 1 tab PO BID 12/23/14 08/27/17 History [Glucosamine-Chondroitin Tablet] Fluticasone Nasal [place] [Flonase 1 spray EA NOSTRIL BID 04/04/17 08/28/17 History Nasal [place]] Magnesium 625 mg PO BID 04/04/17 08/28/17 History Turmeric Root Extract [Turmeric] 500 mg PO BID 04/04/17 08/28/17 History Ubidecarenone [Co Q-10] 200 mg PO DAILY 04/04/17 08/28/17 History Vitamin B Complex 1 cap PO DAILY 04/04/17 08/28/17 History amLODIPine BESYLATE [Norvasc] 10 mg PO DAILY 04/04/17 08/27/17 History Beclomethasone Dip 80 Mcg/Puff 2 puff INHALATION BID 05/28/17 08/27/17 History [Qvar 80 mcg] Losartan [Cozaar] 25 mg PO DAILY 05/28/17 08/27/17 History Metoprolol Succinate (ER) [Toprol 25 mg PO BID 05/28/17 08/27/17 History XL] Calcium Carb/Vitamin D3/Vit K1 1 each PO DAILY 07/08/17 08/27/17 History [Citracal Soft Chew] Cyclobenzaprine [Flexeril] 5 mg PO HS 07/08/17 08/27/17 History Diphenox-Atrop 2.5-0.025 mg 1 tab PO QID PRN 07/08/17 08/28/17 History [Lomotil] Ibuprofen [Motrin] 600 mg PO Q8HR PRN 07/08/17 08/27/17 History Modafinil [Provigil] 200 mg PO DAILY PRN 07/08/17 08/28/17 History Hydrocodone/Acetaminophen [[place] 1 tab PO DIRECTED PRN 10/09/18 10/09/18 History 5-325] Allergies Allergy/AdvReac Type Severity Reaction Status Date / Time erythromycin base AdvReac Abdominal Verified 10/09/18 13:18 [Erythromycin Base] Pain hydromorphone HCl AdvReac Nausea & Verified 10/09/18 13:18 [From Dilaudid] Vomiting Penicillins AdvReac Rash/Hives Verified 10/09/18 13:18 TEGADERM Allergy Rash/Hives Uncoded 10/09/18 13:18 Physical Exam Vitals: Intake and Output 10/08/18 10/09/18 10/09/18 22:59 06:59 14:59 Other: Weight 94.801 kg PHYSICAL EXAM: Constitutional: Awake and alert no distress, obese Cardiovascular exam: Regular rate, no lower extremity edema, palpable pulses bilaterally Respiratory exam: No audible wheezing, no accessory muscle usage Abdominal exam: Soft nontender Muscular skeletal exam: - Cervical spine: Tender to palpation bilateral paraspinal muscles. Alignment is normal. Limited range of motion with flexion. Extension is normal lateral sidebending is decreased bilateral. Spurling's is negative bilateral. Facet loading is positive bilateral. - Lumbar spine: Preserved lumbar lordosis. No changes in skin. Nontender palpation bilateral. Patient has full range of motion in flexion and extension as well as lateral sidebending. Straight leg raise is negative. Facet loading is negative. Nontender over the SI joints. WILLIE Negative, Gaenselons negative , SI Joint compression negative. Right shoulder: Tenderness to palpation over the subacromial bursa on the right. She has limited range of motion of the shoulder secondary to pain. Dasilva Siva is positive. Empty can test is positive. Right arm internal rotation to about L 2/3 only. Neuro exam: Normal sensation bilateral upper and lower extremities. Deep tendon reflexes are 2+ bilaterally. Irizarry's is negative Psychiatric exam: Cooperative, good insight Assessment and Plan Assessment: #1 rotator cuff tendinopathy #2 cervical spondylosis without myelopathy #3 fibromyalgia Plan: I discussed the patient conservative therapies as well as interventional therapies. She presents today for interventional therapy. I discussed with her shoulder pain and neck pain may be of 2 different origins. At this point I feel that starting over the right subacromial bursa injection is most appropriate. I advised her that if her pain does not improve significantly then it may be coming from her neck given her MRI findings. At that point I would perform cervical medial branch blocks of bilateral C3-C4, C4-C5, C5-C6. Patient is in agreement with the plan PQRS Measure Charge Sheet PQRS Narrative: Smoking Status Former smoker Home Medications: Ambulatory Orders DULoxetine HCL [Cymbalta] 60 mg PO DAILY 06/15/14 Cholecalciferol [Vitamin D3] 5,000 unit PO HS 12/23/14 Glucosam/Bryant-Msm1/C/Enrique/Bosw [Glucosamine-Chondroitin Tablet] 1 tab PO BID Fluticasone Nasal [place] [Flonase Nasal [place]] 1 spray EA NOSTRIL BID 04/04/17 Magnesium 625 mg PO BID 04/04/17 Turmeric Root Extract [Turmeric] 500 mg PO BID 04/04/17 Ubidecarenone [Co Q-10] 200 mg PO DAILY 04/04/17 Vitamin B Complex 1 cap PO DAILY 04/04/17 amLODIPine BESYLATE [Norvasc] 10 mg PO DAILY 04/04/17 Beclomethasone Dip 80 Mcg/Puff [Qvar 80 mcg] 2 puff INHALATION BID 05/28/17 Losartan [Cozaar] 25 mg PO DAILY 05/28/17 Metoprolol Succinate (ER) [Toprol XL] 25 mg PO BID 05/28/17 Calcium Carb/Vitamin D3/Vit K1 [Citracal Soft Chew] 1 each PO DAILY 07/08/17 Cyclobenzaprine [Flexeril] 5 mg PO HS 07/08/17 Diphenox-Atrop 2.5-0.025 mg [Lomotil] 1 tab PO QID PRN 07/08/17 Ibuprofen [Motrin] 600 mg PO Q8HR PRN 07/08/17 Modafinil [Provigil] 200 mg PO DAILY PRN 07/08/17 Hydrocodone/Acetaminophen [[place] 5-325] 1 tab PO DIRECTED PRN 10/09/18
== END ==
LOC: PNWHC3 13:10
PROVIDERS: ATTEND Hospitalist
DX: M47.812 Spondylosis without myelopathy or radiculopathy, cervical region (principal); M75.100 Unspecified rotator cuff tear or rupture of unspecified shoulder, not specified as traumatic; I10 Essential (primary) hypertension; E78.5 Hyperlipidemia, unspecified; M79.7 Fibromyalgia; Z87.891 Personal history of nicotine dependence; Z79.899 Other long term (current) drug therapy; Z88.0 Allergy status to penicillin; Z88.1 Allergy status to other antibiotic agents; Z88.5 Allergy status to narcotic agent; Z88.8 Allergy status to other drugs, medicaments and biological substances
CPT/HCPCS: 99211

== ENCOUNTER → 2019-02-18 | Outpatient (CLI) | payer MEDICARE ==
--- NOTE | 2019-02-19 07:25 | BD ---
EXAMINATION TYPE: Axial Bone Density DATE OF EXAM: 02/18/2019 COMPARISON: NONE CLINICAL HISTORY: asymptomatic menopausal Height: 5'3 Weight: 219 FRAX RISK QUESTIONS: History of Fracture in Adulthood: y Secondary Osteoporosis: 3. Menopause before 45: y RISK FACTORS HISTORY OF: Active: n Postmenopausal woman: y MEDICATIONS: Thyroid Medications: Which medication: Levothyroxine How Lon Additional Medications: blood pressure, fibromyalgia,allergies Additional History: fibromyalgia EXAM MEASUREMENTS: Bone mineral densitometry was performed using the [employer] System. Bone mineral density as measured about the Lumbar spine is: ----- L1-L4(G/cm2): 1.259 T Score Values are as follows: ----- L2: 1.0 ----- L3: 0.9 ----- L4: 0.5 ----- L1-L4: 0.7 Bone mineral density about the R hip (g/cm2): 0.896 Bone mineral density about the L hip (g/cm2): 0.882 T Score values are as follows: -----R Neck: -1.0 -----L Neck: -1.1 -----R Total:0.1 -----L Total: 0.1 IMPRESSION: Osteopenia (T Score between -2.5 and -1). There is slightly increased risk of fracture and the patient may be considered for treatment. Re-Screen 2-5 years. NOTE: T-SCORE=SD OF THE YOUNG ADULT MEAN.
--- NOTE | 2019-02-19 13:39 | MM ---
Reason for exam: screening (asymptomatic). Last mammogram was performed 2 years and 10 months ago. History: Patient is postmenopausal and is nulliparous. Physical Findings: A clinical breast exam by your physician is recommended on an annual basis and results should be correlated with mammographic findings. MG 3D Screening Mammo W/Cad Bilateral CC and MLO view(s) were taken. Prior study comparison: April 26, 2016, bilateral MG screening mammo w CAD. December 17, 2014, bilateral MG screening mammo w CAD. There are scattered fibroglandular densities. There is chronic nodularity in the right breast. No significant changes when compared with prior studies. ASSESSMENT: Benign, BI-RAD 2 RECOMMENDATION: Routine screening mammogram of both breasts in 1 year.
== END | disposition home or self-care (01) ==
LOC: RADMAMWWP 15:17
PROVIDERS: ATTEND Family Medicine
DX: Z12.31 Encounter for screening mammogram for malignant neoplasm of breast (principal); M85.80 Other specified disorders of bone density and structure, unspecified site; Z78.0 Asymptomatic menopausal state
CPT/HCPCS: 77063; 77067; 77080

== ENCOUNTER → 2020-09-19 | Outpatient (CLI) | payer MEDICARE ==
--- NOTE | 2020-09-20 13:34 | MM ---
Reason for exam: screening (asymptomatic). Last mammogram was performed 1 year and 7 months ago. History: Patient is postmenopausal and is nulliparous. Physical Findings: A clinical breast exam by your physician is recommended on an annual basis and results should be correlated with mammographic findings. MG 3D Screening Mammo W/Cad Bilateral CC and MLO view(s) were taken. Prior study comparison: February 18, 2019, bilateral MG 3d screening mammo w/cad. April 26, 2016, bilateral MG screening mammo w CAD. The breast tissue is almost entirely fat. No significant changes when compared with prior studies. ASSESSMENT: Benign, BI-RAD 2 RECOMMENDATION: Routine screening mammogram of both breasts in 1 year.
== END | disposition home or self-care (01) ==
LOC: RADMAMWWP 11:14
PROVIDERS: ATTEND Family Medicine
DX: Z12.31 Encounter for screening mammogram for malignant neoplasm of breast (principal)
CPT/HCPCS: 77063; 77067

== ENCOUNTER → 2021-10-27 | Outpatient (CLI) | payer MEDICARE ==
--- NOTE | 2021-10-30 10:57 | MM ---
Reason for exam: screening (asymptomatic). Last mammogram was performed 1 year and 1 month ago. History: Patient is postmenopausal and is nulliparous. Physical Findings: A clinical breast exam by your physician is recommended on an annual basis and results should be correlated with mammographic findings. MG 3D Screening Mammo W/Cad Bilateral CC and MLO view(s) were taken. Prior study comparison: September 19, 2020, bilateral MG 3d screening mammo w/cad. February 18, 2019, bilateral MG 3d screening mammo w/cad. There are scattered fibroglandular densities. There is chronic nodularity in the right breast. No significant changes when compared with prior studies. ASSESSMENT: Benign, BI-RAD 2 RECOMMENDATION: Routine screening mammogram of both breasts in 1 year.
== END | disposition home or self-care (01) ==
LOC: RADMAMWWP 13:29
PROVIDERS: ATTEND Family Medicine
DX: Z12.31 Encounter for screening mammogram for malignant neoplasm of breast (principal); Z78.0 Asymptomatic menopausal state
CPT/HCPCS: 77063; 77067

== ENCOUNTER → 2021-11-07 | Outpatient (CLI) | payer MEDICARE ==
[2021-11-07 14:34] LABS: African American GFR (CKD) >90 (>60 ml/min/1.73 sqM); Blood Urea Nitrogen 16 mg/dL (7-17); Non-African American GFR(CKD) >90 (>60 ml/min/1.73 sqM)
--- NOTE | 2021-11-07 16:24 | CT ---
EXAMINATION TYPE: CT chest w con DATE OF EXAM: 11/07/2021 COMPARISON: NONE HISTORY: Dyspnea CT DLP: 877 mGycm. Automated Exposure Control for Dose Reduction was Utilized. TECHNIQUE: CT scan of the thorax is performed following with IV Contrast, patient injected with 100 mL of Isovue 300. FINDINGS: LUNGS: [id number] bilateral anterior and basilar linear scarring and/or atelectasis is identifi ed. There is 8 x 5 mm nodule abutting the fissure in the right middle lobe axial image 29 nonspecific but favor benign. There is nonspecific 4 mm right upper lung nodule sagittal image 41. No suspicious focal consolidation. No pleural effusion or pneumothorax seen bilaterally. MEDIASTINUM: There is enlarged right tracheobronchial 2.2 x 1.6 cm lymph node is 21. There are additi onal prominent bilateral hilar and subcarinal lymph nodes. There is borderline enlarged 1.6 x 1.0 cm posterior prevascular lymph node image 19. Heart size upper limits of normal. No pericardial effusion is seen. OTHER: Dependent calcified gallstones. No axillary adenopathy. IMPRESSION: 1. No suspicious acute pulmonary process. Mild to moderate scattered bilateral atelectatic change and /or scarring. 2. Abnormal thoracic adenopathy. Nonspecific subcentimeter right lung nodules. Neoplasm cannot be exc luded. Consider PET CT follow-up.
== END | disposition home or self-care (01) ==
LOC: RADCTMAIN 13:29
PROVIDERS: ATTEND Internal Medicine Critical Care Medicine
DX: R59.0 Localized enlarged lymph nodes (principal); J98.11 Atelectasis; R91.8 Other nonspecific abnormal finding of lung field
CPT/HCPCS: 82565; 84520; 71260; 36415; Q9967

== ENCOUNTER → 2021-11-24 | Outpatient (CLI) | payer MEDICARE ==
--- NOTE | 2021-11-28 14:26 | PE ---
Nuclear medicine PET/CT HISTORY: Thoracic lymphadenopathy, initial Patient received 11.1 mCi F-18 FDG intravenously and delayed scanning was performed from the skull ba se to the mid thighs. Localization and attenuation correction CT scan was performed. Comparison CT chest 11/07/2021 or graph average mediastinal uptake is 2.5, average liver uptake SUV 3.9 Chest and neck: Subcentimeter pulmonary nodules do not show associated hypermetabolic uptake. There i s no pleural or pericardial effusion. Retrocaval pretracheal node shows an SUV 3.1, no suspicious upt honey along the prevascular nodes. There is no axillary or evident hilar adenopathy. No cervical or sup raclavicular adenopathy. ABDOMEN: No evident liver mass. Gallstones are present. There is no adrenal mass. No retroperitoneal adenopathy or ascites. Uterus and adnexal structures not seen. Osseous structures show no suspicious uptake. IMPRESSION: Differential includes granulomatous infection both infectious and noninfectious, no suspi cious uptake. Cholelithiasis. Consider follow-up.
== END | disposition home or self-care (01) ==
LOC: RADPETMAIN 16:49
PROVIDERS: ATTEND Family Medicine
DX: K80.20 Calculus of gallbladder without cholecystitis without obstruction (principal); D71 Functional disorders of polymorphonuclear neutrophils; R59.0 Localized enlarged lymph nodes
CPT/HCPCS: 78815; A9552

== ENCOUNTER → 2023-05-14 | Outpatient (CLI) | payer MEDICARE ==
--- NOTE | 2023-05-15 09:37 | MM ---
Reason for Exam: Screening (asymptomatic). Last mammogram was performed 1 year(s) and 7 month(s) ago. Patient History: Menarche at age 15. Patient has no children. Left ovary removed at age 48. Right ovary removed at age 37. Hysterectomy at age 48. Postmenopausal. Risk Values: Lila 5 year model risk: 1.8%. NCI Lifetime model risk: 4.9%. Prior Study Comparison: 02/18/2019 Bilateral Screening Mammogram, [facility]. 09/19/2020 Bilateral Screening Mammogram, [facility]. 10/27/2021 Bilateral Screening Mammogram, [facility]. Tissue Density: There are scattered fibroglandular densities. Findings: Analyzed By CAD. There is no suspicious group of microcalcifications or new suspicious mass in either breast. Overall Assessment: Negative, BI-RAD 1 Management: Screening Mammogram of both breasts in 1 year. . Patient should continue monthly self-breast exams. A clinical breast exam by your physician is recommended on an annual basis. This exam should not preclude additional follow-up of suspicious palpable abnormalities. Note on Lila scores and lifetime risk: 1. A Lila score greater than 3% is considered moderate risk. If this is the case, consider specialist referral to assess eligibility for a risk reducing agent. 2. If overall lifetime risk for the development of breast cancer is 20% or higher, the patient may qualify for future screening with alternating mammogram and breast MRI. Electronically signed and approved by: Rolan Rhodes M.D. Radiologis
== END | disposition home or self-care (01) ==
LOC: RADMAMWWP 13:55
PROVIDERS: ATTEND Family Medicine
DX: Z12.31 Encounter for screening mammogram for malignant neoplasm of breast (principal); Z78.0 Asymptomatic menopausal state
CPT/HCPCS: 77063; 77067

== ENCOUNTER → 2023-10-25 | Outpatient (CLI) | payer MEDICARE ==
--- NOTE | 2023-10-25 10:11 | USB ---
Reason for Exam: Clinical finding. Patient History: Menarche at age 15. Patient has no children. Left ovary removed at age 48. Right ovary removed at age 37. Hysterectomy at age 48. Postmenopausal. Risk Values: Lila 5 year model risk: 1.8%. NCI Lifetime model risk: 4.6%. Technique: Method: Targeted. Prior Study Comparison: 09/19/2020 Bilateral Screening Mammogram, [facility]. 10/27/2021 Bilateral Screening Mammogram, [facility]. 05/14/2023 Bilateral MG 3D screening mammo w/cad, [facility]. Findings: The lower section of the breast of the left breast, the axilla of the left breast and the retroareolar of the left breast were scanned. Targeted ultrasound 7:00 position of the patient's site of drainage left breast. Additional scanning of the subareolar region and axilla. At the site of drainage, there is a 1.2 cm plaque-like cutaneous lesion of the dermal layer. No deeper extension into the breast tissue itself. There may be some mild hyperemia and dislocation. No abnormal fluid collection otherwise seen. No axillary lymphadenopathy. Overall Assessment: Benign, BI-RAD 2 Management: Screening Mammogram of both breasts in 7 months. In time for the patient's annual study. Further clinical management of the patient's cutaneous and draining lesion along the inferior aspect of the left breast. Dermatology consultation can be considered if indicated. A clinical breast exam by your physician is recommended on an annual basis and results should be correlated with mammographic findings. This exam should not preclude additional follow-up of suspicious palpable abnormalities. Results were given to the patient verbally at the time of exam. Electronically signed and approved by: Kassandra Wyatt M.D. Radiologist
== END | disposition home or self-care (01) ==
LOC: RADUSWWP 09:26
PROVIDERS: ATTEND Family Medicine
DX: Z78.0 Asymptomatic menopausal state (principal); Z90.721 Acquired absence of ovaries, unilateral

== ENCOUNTER 2023-11-03 19:08 | Outpatient (CLI) | payer MEDICARE ==
--- NOTE | 2023-11-11 21:11 | P.PCN ---
Date of Procedure: 11/11/23 Description of Procedure: CPAP titration report Date of services 11/03/2023 Pertinent history This is a 73-year-old female patient diagnosed having symptomatic obstructive sleep apnea. The patient was diagnosed having moderate to severe disease with an AHI of 18 and based on that, the patient is coming in to undergo a CPAP titration. Pertinent physical findings The patient's height is 5 feet and 3 inches, weight is 226 pounds and a body mass index is 40 Technical description The patient was studied using a standard complex polysomnography protocol that included recording of the 2 EKG, Central, occipital and frontal EEG, right and left outer canthus EOG, submental EMG, right and left anterior tibialis EMG, respiratory airflow by thermocouple and or pressure/flow transducer, respiratory efforts by abdominal and thoracic PVDF belts, oxygen saturation by cable oximetry. Position by observation synchronized the PSG. Stepwise CPAP titration was done to eliminate obstructive respiratory events.. Equipment used: [place]. Sleep architecture The total time in bed was 371 minutes and the total sleep time was 180.5 minutes and the sleep efficiency was 40.7 minutes. Latency to sleep onset was 44.5 minutes and the latency to REM sleep was 261. 0 minutes. The sleep architecture was characterized by 6.4% stage I, 60.1% stage II, 0% stage III, and 34.5% REM sleep. The wake after sleep onset time was 148.5 minutes. The total arousal index was 7.0 Sleep continuity summary The patient had a total of 21 arousals with an arousal index of 7. The respiratory arousal index was 0.3 Periodic limb movement summary No significant periodic limb movement activity was noted throughout the sleep study Cardiac summary The average heart rate was 87 with a minimum heart rate of 82 and a maximum heart rate of 104 CPAP titration summary The patient was started on CPAP therapy, initially at a pressure of 5 cm of water and the pressure was gradually increased maintenance of 1 cm to reach a maximum CPAP pressure of 8 cm of water. This was successful titration. The patient's pressure was gradually increased to terminate respiratory events. I carefully reviewed the CPAP titration taking account the patient's sleep stage and body position. Note that oxygen was also added throughout the titration. Ultimately, the titration was successful at the pressure of 8 cm of water. At that level of pressure, the patient was in the nonsupine body position and the patient was in rem sleep and the pressure was adequate to eliminate obstructive respiratory events. This was chosen to be the target CPAP pressure to treat this patient's obstructive sleep apnea Assessment Symptomatic DAVID, moderate in severity with an AHI of 18. The patient underwent successful CPAP titration. The patient encountered nocturnal oxygen desaturations and O2 was added at 2 L and the titration ended at the CPAP pressure of 8 cm of water Severe nocturnal oxygen saturation, eliminated with CPAP and oxygen therapy Obesity with a BMI of 41 Chronic restrictive lung disease secondary to morbid obesity Hypertrophic cardiomyopathy DVT and history of pulmonary embolism History of factor V Leiden Plan Initiate CPAP therapy at a pressure of 8 cm of water with a C-Flex of 3. O2 will be also added at 2 L to maintain saturation above 90%. This was successful titration. The patient is going to be provided an AirFit F20 fullface mask medium size. Will encourage weight loss. Optimize sleep hygiene measures. Treat comorbidities. See me back in 30 to 90 days to assess clinical response and compliancy and will continue to follow.
== END 2023-11-04 08:45 | disposition home or self-care (01) ==
LOC: 3 N SLEEP 19:08
PROVIDERS: ATTEND Internal Medicine Critical Care Medicine
DX: G47.33 Obstructive sleep apnea (adult) (pediatric) (principal); G47.10 Hypersomnia, unspecified; G47.36 Sleep related hypoventilation in conditions classified elsewhere; E66.01 Morbid (severe) obesity due to excess calories; J98.4 Other disorders of lung; I42.2 Other hypertrophic cardiomyopathy; D68.51 Activated protein C resistance; Z86.711 Personal history of pulmonary embolism; Z86.718 Personal history of other venous thrombosis and embolism; Z88.1 Allergy status to other antibiotic agents; Z88.5 Allergy status to narcotic agent; Z88.0 Allergy status to penicillin; Z88.8 Allergy status to other drugs, medicaments and biological substances; Z79.51 Long term (current) use of inhaled steroids; Z79.899 Other long term (current) drug therapy; Z87.891 Personal history of nicotine dependence; Z68.41 Body mass index [BMI] 40.0-44.9, adult
CPT/HCPCS: 95811

== ENCOUNTER → 2024-02-06 | Outpatient (CLI) | payer MEDICARE ==
[2024-02-06 13:05] LABS: African American GFR (CKD) 82 (>60 ml/min/1.73 sqM); Blood Urea Nitrogen 21 mg/dL (7-17); Non-African American GFR(CKD) 71 (>60 ml/min/1.73 sqM)
--- NOTE | 2024-02-06 14:25 | CT ---
EXAMINATION TYPE: CT chest w con DATE OF EXAM: 02/06/2024 COMPARISON: 11/07/2021 HISTORY: Localized enlarged lymph nodes CT DLP: 730 mGycm Automated exposure control for dose reduction was used. TECHNIQUE: CT scan of the chest is performed with IV Contrast, patient injected with 100 mL of Isovue 300. MIP Images are created on CT scanner and reviewed. 3D reconstructed images are created on an independent workstation and reviewed. FINDINGS: Groundglass density associated with the fissure in the right upper lung has remained stable. There is mild scattered interstitial density with a lower lobe predominance with mild traction bronch iectasis. The findings are consistent with mild interstitial lung disease. There is no abnormal airspace/consolidative density. No suspicious lung mass or nodule. There is persistent mediastinal lymphadenopathy which appears more prominent than on the prior study. 2 or 3 of the enlarged lymph nodes on the prior study have grown slightly in the interval. There is no pleural effusion or pneumothorax. Limited scanning through the upper abdomen reveals cholelithiasis. No focal osseous lesions are seen. IMPRESSION: 1. Mild stable interstitial changes. 2. Stable right upper lobe groundglass density. 3. No suspicious lung mass or nodule. 4. Stable cholelithiasis. 5. Persistent mediastinal adenopathy which has increased mildly in the interval.
== END | disposition home or self-care (01) ==
LOC: RADCTMAIN 12:10
PROVIDERS: ATTEND Internal Medicine Critical Care Medicine
DX: R59.0 Localized enlarged lymph nodes (principal); J98.4 Other disorders of lung; K80.20 Calculus of gallbladder without cholecystitis without obstruction
CPT/HCPCS: 71260; 82565; 84520

== ENCOUNTER → 2024-07-03 | Outpatient (CLI) | payer MEDICARE ==
--- NOTE | 2024-07-06 14:43 | MM ---
Reason for Exam: Screening (asymptomatic). Last mammogram was performed 1 year(s) and 2 month(s) ago. Patient History: Menarche at age 15. Patient has no children. Left ovary removed at age 48. Right ovary removed at age 37. Hysterectomy at age 48. Postmenopausal. Risk Values: Lila 5 year model risk: 1.8%. NCI Lifetime model risk: 4.6%. Prior Study Comparison: 12/17/2014 Bilateral Screening Mammogram, [facility]. 04/26/2016 Bilateral Screening Mammogram, [facility]. 02/18/2019 Bilateral Screening Mammogram, [facility]. 09/19/2020 Bilateral Screening Mammogram, [facility]. 10/27/2021 Bilateral Screening Mammogram, [facility]. 05/14/2023 Bilateral MG 3D screening mammo w/cad, [facility]. Tissue Density: There are scattered areas of fibroglandular density. Findings: Analyzed By CAD. There is no suspicious group of microcalcifications or new suspicious mass in either breast. Overall Assessment: Benign, BI-RAD 2 Management: Screening Mammogram of both breasts in 1 year. . Patient should continue monthly self-breast exams. A clinical breast exam by your physician is recommended on an annual basis. This exam should not preclude additional follow-up of suspicious palpable abnormalities. Note on Lila scores and lifetime risk: 1. A Lila score greater than 3% is considered moderate risk. If this is the case, consider specialist referral to assess eligibility for a risk reducing agent. 2. If overall lifetime risk for the development of breast cancer is 20% or higher, the patient may qualify for future screening with alternating mammogram and breast MRI. [facility], , 07/06/2024 2:40 PM. Electronically signed and approved by: Rolan Rhodes M.D. Radiologis
== END | disposition home or self-care (01) ==
LOC: RADMAMWWP 12:36
PROVIDERS: ATTEND Family Medicine
DX: Z12.31 Encounter for screening mammogram for malignant neoplasm of breast
CPT/HCPCS: 77063; 77067

== ENCOUNTER → 2024-09-07 | Outpatient (CLI) | payer MEDICARE ==
--- NOTE | 2024-09-07 15:21 | CT ---
EXAMINATION TYPE: CT brain wo con DATE OF EXAM: 09/07/2024 COMPARISON: None CLINICAL INDICATION: Female, 74 years old with history of H92.21 OTORRHAGIA, RIGHT EAR; PHH, Right ea r pain, hard of hearing x [address] DLP: 1245 mGycm Automated exposure control for dose reduction was used. Findings: The ventricles, basal cisterns and sulci over the convexities are within normal limits for the patien t's age and there is no mass effect or shift of midline structures. No abnormal density is seen throughout the brain parenchyma and there is no acute intra or extra-axia l hemorrhage. The posterior fossa including the brainstem, fourth ventricle and cerebellar pontine angles appear no rmal. Intraorbital contents appear normal and symmetric. Visualized paranasal sinuses and mastoid air cells are well aerated. The calvarium is intact. IMPRESSION: No significant abnormality seen. There is no acute bleed or mass effect. [facility], Workstation: [id number] 09/07/2024 3:19 PM
== END | disposition home or self-care (01) ==
LOC: RADCTMAIN 14:26
PROVIDERS: ATTEND Family Medicine
DX: H92.21 Otorrhagia, right ear (principal); H92.10 Otorrhea, unspecified ear; H91.8X1 Other specified hearing loss, right ear
CPT/HCPCS: 70450

== ENCOUNTER → 2025-03-03 | Outpatient (CLI) | payer MEDICARE ==
[2025-03-03 11:33] LABS: African American GFR (CKD) >90 (>60 ml/min/1.73 sqM); Blood Urea Nitrogen 15 mg/dL (7-17); Non-African American GFR(CKD) 88 (>60 ml/min/1.73 sqM)
--- NOTE | 2025-03-06 20:50 | CT ---
EXAMINATION TYPE: CT chest w con DATE OF EXAM: 03/03/2025 12:42 PM COMPARISON: 02/06/2024 CLINICAL INDICATION: Female, 74 years old with history of R59.0 ENLARG LYMPH NODES, enlarged lymph no bharti TECHNIQUE: Axial images were obtained at 5 mm thick sections. Reconstructed images are reviewed on [employer] computer in the coronal plane. Contrast used:100 mL of Isovue 300 with IV Contrast, (none if empty) Oral contrast used: (none if empty) CT DLP: 687 mGycm, Automated exposure control for dose reduction was used. FINDINGS: Portion of the thyroid visualized is normal. Couple of punctate densities in the periphery of the right upper lung field. There is a 0.8 cm density in the anterior right midlung. Series 4 image 30 There is a 1.8 cm lymph node in the pretracheal space. There is a 1.3 cm in the medial aortic pulmon ic window lymph node. In the lateral aortic pulmonic window a lymph node measures 1.2 cm and a second measures 1.3 cm. There is a small subcarinal lymph node. Small right infrahilar lymph node is presen t. There are small superior mediastinal lymph nodes the largest measures 1.0 cm. Ascending aorta diameter at the level of the main pulmonary artery is 3.3 cm. The main pulmonary art jessica diameter at the bifurcation is 2.7 cm. No significant coronary artery calcifications. Limited CT sections are obtained through the upper abdomen. Cholelithiasis present. IMPRESSION: 1. There are persistent enlarged lymph nodes within the mediastinum present previously. 2. Small nodule within the anterior right midlung, stable [facility], , 03/06/2025 8:48 PM
== END | disposition home or self-care (01) ==
LOC: RADCTMAIN 10:48
PROVIDERS: ATTEND Internal Medicine Critical Care Medicine
DX: R91.1 Solitary pulmonary nodule (principal); R59.0 Localized enlarged lymph nodes
CPT/HCPCS: 82565; 84520; 71260; 36415; Q9967